=== PATIENT | male | born 2000 ===

== ENCOUNTER 2022-01-31 00:17 | Emergency (ER) | payer SELFPAY ==
[~2022-01-31] VITALS: Ht 170.2 cm; Wt 100.0 kg
[2022-01-31 00:19] VITALS: BP 115/57
== END 2022-01-31 01:20 | disposition left against medical advice (07) ==
LOC: M ED 00:17
DX: Z53.21 Procedure and treatment not carried out due to patient leaving prior to being seen by health care provider (principal)